=== PATIENT | female | born 1990 | race Two or more races ===

== ENCOUNTER → 2020-05-06 | Emergency (ER) | payer OTHER ==
[~2020-05-06] VITALS: Ht 152.4 cm; Wt 77.6 kg
[~2020-05-06] MED LIST: ACETAMINOPHEN500 M2; CLINDAMYCIN HC300 MG PO; INTESTINEX680 M1 PO; KETO10TA2 PO
== END | disposition home or self-care (01) ==
LOC: ER 14:59
DX: S20.472A Other superficial bite of left back wall of thorax, initial encounter (principal); L03.114 Cellulitis of left upper limb; W57.XXXA Bitten or stung by nonvenomous insect and other nonvenomous arthropods, initial encounter; Y93.89 Activity, other specified; Y92.89 Other specified places as the place of occurrence of the external cause; Y99.8 Other external cause status

== ENCOUNTER 2023-12-14 09:56 | Emergency (ER) | payer OTHER ==
[~2023-12-14] VITALS: Ht 157.5 cm; Wt 82.1 kg
[2023-12-14] MEDS ORDERED: KETOROLAC TROMETHAMINE 30 MG VIAL ONE (11:14)
[2023-12-14] MEDS ORDERED: CEFTRIAXONE SODIUM 1,000 MG VIAL ONE (11:14)
[2023-12-14] MEDS ORDERED: CEFTRIAXONE SODIUM 1,000 MG VIAL IM ONE (11:15)
[2023-12-14] MEDS ORDERED: KETOROLAC TROMETHAMINE 30 MG VIAL IM ONE (11:15)
[2023-12-14 11:30] LABS: HEMATOCRIT 28.5 % (36.0-45.00); HEMOGLOBIN 9.2 g/dL (12.0-15.00); MEAN CELL VOLUME 81.8 fL (80.00-100.00); MEAN CORPUSCULAR HEMOGLOBIN 26.4 pg (27.00-32.0); MEAN CORPUSCULAR HGB CONC 32.3 g/dl (32.0-36.0); PLATELET COUNT 285 K/uL (150-450); RED BLOOD COUNT 3.48 M/uL (4.00-6.00); RED CELL DISTRIBUTION WIDTH 15.8 % (11.5-14.5)
[2023-12-14 11:49] LABS: URINE EPITHELIAL CELLS 6.6 uL (0.0-38.8); URINE RBC 590.7 uL (0.0-20.8); URINE WBC 15.1 uL (0.0-23.2)
[2023-12-14 12:06] LABS: PH,URINE 6.5 (5.0-8.0); URINE APPEARANCE Clear; URINE BILIRRUBIN Negative (NEGATIVE); URINE BLOOD Large; URINE COLOR Yellow; URINE GLUCOSE Negative (NEGATIVE); URINE KETONE Negative (NEGATIVE); URINE LEUKOCYTE Trace; URINE NITRATE Negative; URINE PROTEIN Negative (NEGATIVE)
== END 2023-12-14 13:11 | disposition home or self-care (01) ==
LOC: ER 09:58
PROVIDERS: General Practice
DX: N39.0 Urinary tract infection, site not specified (principal)